=== PATIENT | female | born 1955 | race Caucasian/White ===

== ENCOUNTER → 2020-08-24 | Outpatient (CLI) | payer BC ==
[~2020-08-24] VITALS: Ht 152 cm; Wt 78.0 kg
[~2020-08-24] MED LIST: REGADENOSON 0.4 MG/5 ML SYR (LEXISCAN) IV ONE
[2020-08-24 13:00] VITALS: BP 177/105
[2020-08-24 13:17] VITALS: BP 156/75
--- NOTE | 2020-08-24 15:57 | Cardiology Stress Test Report ---
Stress Test Report Date of Procedure/Referring: Date of Procedure: Aug 24, 2020 PCP Jonatan Lopes MD Admitting Physician No,Local Physician Indications: Dyspnea Baseline Heart Rate: 85 Baseline Blood Pressure: Blood Pressure Systolic: 156 Blood Pressure Diastolic: 75 Vital Signs Date Time Temp Pulse Resp B/P (MAP) Pulse Ox O2 Delivery O2 Flow Rate FiO2 08/24/20 13:00 63 14 177/105 (129) 98 Room Air Baseline Vital Signs Vital Signs Date Time Temp Pulse Resp B/P (MAP) Pulse Ox O2 Delivery O2 Flow Rate FiO2 08/24/20 13:00 63 14 177/105 (129) 98 Room Air Baseline EKG: Baseline EKG: normal sinus rhythm Summary: After explaining the procedure and details to the patient, she signed the co nsent and was brought to the stress nuclear laboratory. Patient exercised on standard Leeroy protocol, EKG, heart rate and blood pressure were monitored continuously, resting and stress doses of radio tracer were injected, imaging was acquired and reviewed in the short axis, horizontal long axis and vertical long axis views Patient was able to exercise for a total of 6 minutes on Leeroy protocol, METs 7.3 Maximum heart rate 151 Maximum blood pressure 242/86 Stress EKG, [address] depression in leads 2, 3, aVF, V4 and V5. Later in recovery became [address] depression then returned to baseline Recovery EKG, Return to baseline TID: 0.93 SSS: 1 SDS: 1 EF: 79 Conclusion: 1. Exercise tolerance for total of 6 minutes on standard Leeroy protocol total of 7.3 METs achieving 98 percent of maximum expected heart rate 2. Severe hypertensive response to exercise returned to baseline during recovery 3. [address] depression in lead 2, 3, aVF, V4 and V5 became [address] depression in lead 2, 3, aVF early in recovery and return to baseline later in recovery 4. No significant ischemia or infarction on SPECT images 5. Normal left ventricular size, EF 79 percent JONATAN LOPES MD Aug 24, 2020 15:57
== END ==
LOC: CARD 09:59
PROVIDERS: ATTEND Internal Medicine Cardiovascular Disease
DX: I10 Essential (primary) hypertension (principal); E66.9 Obesity, unspecified; R53.83 Other fatigue; R06.00 Dyspnea, unspecified; R00.1 Bradycardia, unspecified; Z82.49 Family history of ischemic heart disease and other diseases of the circulatory system
CPT/HCPCS: 78452; 93017; 93306; A9502

== ENCOUNTER → 2021-05-25 | Outpatient (CLI) | payer BC ==
--- NOTE | 2021-05-25 15:48 | Diagnostic Imaging Report ---
PROCEDURE: MRI left joint lower extremity without contrast. TECHNIQUE: Multiplanar, multisequence non contrast-enhanced MRI of the left lower extremity was accomplished. INDICATION: Left hip pain. COMPARISON: None available. FINDINGS: Left hip: There is a [id number] sized left hip effusion that is likely reactive in nature. Severe degenerative changes are present in the left hip with diffuse full-thickness articular cartilage loss in the anterior to mid aspect of acetabulum, with underlying subchondral cystic change and edema. A ring of osteophytes is present around the femoral head and neck junction. Degenerative macerated tearing is present throughout the acetabular labrum. Bones: No osteonecrosis of the femoral heads. No sacral insufficiency fracture. No marrow replacing process. Muscles and tendons: The distal iliopsoas tendons are intact. Proximal hamstring complexes are normal. Partial-thickness tear of the left gluteus minimus. Gluteus medius and minimus insertions are intact on both sides. No abnormality of the adductor musculature. Pelvis: No free pelvic fluid. No pelvic or inguinal lymphadenopathy. IMPRESSION: 1. Severe osteoarthritis of the left hip with a broad region of full-thickness articular cartilage loss in the acetabulum and underlying cystic change. 2. Associated degenerative macerated tearing within the left acetabular labrum. 3. [id number]-[id number] left hip effusion is likely reactive in nature due to the advanced degenerative change. 4. Partial-thickness tear of the left gluteus minimus at its distal insertion. Dictated by: Dictated on workstation # [id number]
== END ==
LOC: RAD 13:15
PROVIDERS: ATTEND Nurse Practitioner Family
DX: M16.12 Unilateral primary osteoarthritis, left hip (principal); S73.192A Other sprain of left hip, initial encounter; M25.452 Effusion, left hip
CPT/HCPCS: 73721

== ENCOUNTER → 2022-02-22 | Outpatient (CLI) | payer BC, MEDICARE | LOC: CARDFS 09:47 | PROVIDERS: ATTEND Internal Medicine Cardiovascular Disease | DX: I11.9 Hypertensive heart disease without heart failure (principal) | CPT/HCPCS: 93306 ==

== ENCOUNTER 2022-06-25 07:57 | Outpatient (CLI) | payer MEDICARE | END 2022-06-25 11:15 | LOC: SLEEP 07:57 | PROVIDERS: ATTEND Internal Medicine Cardiovascular Disease | DX: G47.33 Obstructive sleep apnea (adult) (pediatric) (principal); I10 Essential (primary) hypertension | CPT/HCPCS: G0399 ==

== ENCOUNTER → 2022-06-25 | Outpatient (CLI) | payer MEDICARE ==
[~2022-06-25] VITALS: Ht 152 cm; Wt 76.0 kg
[~2022-06-25] MED LIST changes: +CATHETER FLUSH 10 ML SYR IVP PRN; -REGADENOSON 0.4 MG/5 ML SYR (LEXISCAN) IV ONE
[2022-06-25 09:27] VITALS: BP 149/65
--- NOTE | 2022-06-25 11:55 | Cardiology Stress Test Report ---
Stress Test Report Date of Procedure/Referring: Date of Procedure: Jun 25, [address] [facility] Admitting Physician Admitting Physician: Attending Physician: Jonatan Lopes MD Indications: HTN Baseline Heart Rate: 51 Baseline Blood Pressure: Blood Pressure Systolic: 149 Blood Pressure Diastolic: 65 Vital Signs Date Time Temp Pulse Resp B/P (MAP) Pulse Ox O2 Delivery O2 Flow Rate FiO2 06/25/22 09:27 51 149/65 (93) Baseline Vital Signs Vital Signs Date Time Temp Pulse Resp B/P (MAP) Pulse Ox O2 Delivery O2 Flow Rate FiO2 06/25/22 09:27 51 149/65 (93) Baseline EKG: Baseline EKG: NSR Summary: After explaining the procedure and details to the patient, she signed the consent and was brought to the stress nuclear laboratory. Patient exercised on standard Leeroy protocol, EKG, heart rate and blood pressure were monitored continuously, resting and stress doses of radio tracer were injected, imaging was acquired and reviewed in the short axis, horizontal long axis and vertical long axis views Patient was able to exercise for a total of 8 minutes on Leeroy protocol, METs 9.7 Maximum heart rate 153 Maximum blood pressure 213/89 Stress EKG, Minimal nondiagnostic changes Recovery EKG, Return to baseline TID: 0.92 SSS: 0 SDS: 0 EF: 75 Conclusion: 1. Good exercise tolerance for a total of 8 minutes on standard Leeroy protocol, 9.7 METS achieving 98% of maximum expected heart rate 2. Baseline hypertension with hypertensive response to exercise, peak blood pressure 213/89 return to baseline during recovery 3. Nondiagnostic EKG changes with exercise return to baseline during recovery 4. No significant ischemia or infarction on SPECT images 5. Normal left ventricular size, ejection fraction 75% Copy Copies To 1: [facility]/ JONATAN LOPES MD Jun 25, 2022 11:55
== END ==
LOC: CARD 07:58
PROVIDERS: ATTEND Internal Medicine Cardiovascular Disease
DX: I10 Essential (primary) hypertension (principal)
CPT/HCPCS: 78452; 93017; A9502